=== PATIENT | male | born 1955 | race Caucasian/White ===

== ENCOUNTER 2018-06-13 10:00 | Day surgery (SDC) | payer OTHER | END 2018-06-13 14:49 | disposition home or self-care (01) | LOC: AMB-ENDOS 10:00 | DX: K63.5 Polyp of colon (principal); K57.30 Diverticulosis of large intestine without perforation or abscess without bleeding; K64.8 Other hemorrhoids ==

== ENCOUNTER 2019-12-04 05:45 | Day surgery (SDC) | payer OTHER | END 2019-12-04 09:50 | disposition home or self-care (01) | LOC: AMB-ENDOS 05:45 | DX: D12.5 Benign neoplasm of sigmoid colon (principal) ==